=== PATIENT | male | born 1990 | race African-American/Black ===

== ENCOUNTER 2019-11-18 13:20 | Outpatient (CLI) | payer OTHER | END 2019-11-18 13:21 | disposition home or self-care (01) | LOC: SCSLAB 13:20 | PROVIDERS: ATTEND Family Medicine | DX: R10.9 Unspecified abdominal pain (principal) | CPT/HCPCS: 82274; 87045; 87046; 87427; 87449 ==

== ENCOUNTER 2021-04-28 16:01 | Emergency (ER) | payer OTHER | END 2021-04-28 17:40 | disposition home or self-care (01) | LOC: ERS 16:01 | DX: B07.0 Plantar wart (principal); B35.3 Tinea pedis; R20.2 Paresthesia of skin; F17.210 Nicotine dependence, cigarettes, uncomplicated | CPT/HCPCS: 36416; 99284 ==